=== PATIENT | male | born 1955 | race Caucasian/White ===

== ENCOUNTER 2017-11-24 12:47 | Day surgery (SDC) | payer BC ==
[~2017-11-24] VITALS: Ht 193 cm; Wt 130.2 kg
[2017-11-24 13:20] VITALS: BP 135/94
[2017-11-24] MEDS ORDERED: OXYC-302 PO (13:20)
[2017-11-24] MEDS ORDERED: KETO10TA PO (13:20)
[2017-11-24] MEDS ORDERED: ONDA4TAB10 PO (13:20)
[2017-11-24] MEDS ORDERED: MIDAZOLAM 1 MG/ML, 2ML ONE (13:22)
[2017-11-24] MEDS ORDERED: FENTANYL PF 100 MCG/2ML ONE (13:22)
[2017-11-24] MEDS ORDERED: LACTATED RINGERS 1,000 ML IV SCH (13:27)
[2017-11-24] MEDS ORDERED: ONDANSETRON 2MG/ML, 2ML ONE (13:55)
[2017-11-24] MEDS ORDERED: PROPOFOL 10 MG/ML, 20ML ONE (13:55)
[2017-11-24] MEDS ORDERED: NEOSTIGMINE 1 MG/ML, 10ML ONE (13:55)
[2017-11-24] MEDS ORDERED: ROCURONIUM 10 MG/ML,10ML ONE (13:55)
[2017-11-24] MEDS ORDERED: GLYCOPYRROLATE 0.2MG/1ML, 5ML ONE (13:55)
[2017-11-24] MEDS ORDERED: SUCCINYLCHOLINE 20 MG/ML, 10ML ONE (13:55)
[2017-11-24] MEDS ORDERED: DEXAMETHASONE 4 MG/ML, 1ML ONE (13:55)
[2017-11-24] MEDS ORDERED: CEFAZOLIN 1,000 MG ONE (13:55)
[2017-11-24] MEDS ORDERED: OMNIPAQUE 350 MG/ML, 50 ML BOTTLE ONE (15:07)
[2017-11-24] MEDS ORDERED: HYDROcodone/APAP 7.5-325MG/15ML UDC PO PRN (15:30)
[2017-11-24] MEDS ORDERED: MIDAZOLAM 1 MG/ML, 2ML IV PRN (15:30)
[2017-11-24] MEDS ORDERED: FENTANYL PF 100 MCG/2ML IV PRN (15:30)
[2017-11-24] MEDS ORDERED: LABETALOL 5MG/ML, 20ML IV PRN (15:30)
[2017-11-24] MEDS ORDERED: EPHEDRINE 50 MG/ML, 1ML IVPush PRN (15:30)
[2017-11-24] MEDS ORDERED: OXYcodone 5 MG/5 ML ORAL.SOL UDC PO PRN (15:30)
[2017-11-24] MEDS ORDERED: ONDANSETRON ODT 8 MG PO PRN (15:30)
[2017-11-24] MEDS ORDERED: MEPERIDINE/PF 25MG/0.5ML IVPush PRN (15:30)
[2017-11-24] MEDS ORDERED: ALBUTEROL SULFATE 2.5 MG/3 ML NPPB PRN (15:30)
[2017-11-24] MEDS ORDERED: ACETAMINOPHEN 325 MG TABLET PO PRN (15:30)
[2017-11-24] MEDS ORDERED: hydrALAzine 20 MG/ML, 1ML IV PRN (15:30)
[2017-11-24] MEDS ORDERED: KETOROLAC 30 MG/1 ML IV PRN (15:30)
[2017-11-24] MEDS ORDERED: HYDROmorphone 1 MG/ML, 1ML IV PRN (15:30)
[2017-11-24] MEDS ORDERED: PROMETHAZINE 25 MG/ML, 1ML IV PRN (15:30)
== END 2017-11-24 17:30 | disposition home or self-care (01) ==
LOC: OR 12:47
PROVIDERS: ATTEND Urology
DX: N20.0 Calculus of kidney (principal); Z90.49 Acquired absence of other specified parts of digestive tract
CPT/HCPCS: 52356; 74420; 82360; 88300; 93005; C1758; C2617; J0330; J0690; J1100; J2250; J2405; J2704; J2710; J3010; J3490; J7120; Q9967